=== PATIENT | female | born 1960 | race Caucasian/White ===

== ENCOUNTER → 2017-02-05 | Outpatient (CLI) | payer OTHER, MEDICAID | LOC: EDSTATUS 11:43 → FLAB 15:06 → FIMAGING 15:06 | DX: M54.2 Cervicalgia (principal); V89.2XXA Person injured in unspecified motor-vehicle accident, traffic, initial encounter ==

== ENCOUNTER 2017-09-04 11:33 | Emergency (ER) | payer MEDICAID, OTHER ==
[2017-09-04 11:46] VITALS: BP 208/151
--- NOTE | 2017-09-04 11:51 | EDPHY ---
H & P Stated Complaint: HTN Time Seen by Provider: 09/04/17 11:50 - Personal History Current Tetanus/Diphtheria Vaccine: Yes Current Tetanus Diphtheria and Acellular Pertussis (TDAP): Yes - Medical/Surgical History Hx Asthma: No Hx Chronic Respiratory Disease: No Hx Diabetes: No Hx Cardiac Disease: No Hx Renal Disease: No Hx Cirrhosis: No Hx Alcoholism: No Hx HIV/AIDS: No Hx Splenectomy or Spleen Trauma: No Other PMH: HTN, anxiety, PTSD, chronic pain - Social History Smoking Status: Never smoked Constitutional: Initial Vital Signs Temperature (C) 36.7 C 09/04/17 11:43 Heart Rate 102 H 09/04/17 11:43 Respiratory Rate 16 09/04/17 11:43 Blood Pressure 208/151 H 09/04/17 11:43 O2 Sat (%) 96 09/04/17 11:43 O2 Delivery Mode Room Air Allergies/Adverse Reactions: steroids Allergy (Uncoded 08/17/11 11:03) Other-Enter Comments Home Medications: Medication Instructions Recorded Atenolol 09/04/17 Clonazepam 09/04/17 HCTZ (*) 09/04/17 Lotensin 09/04/17 Vicodin 5-300 mg Tablet 09/04/17 clonazePAM [klonoPIN (*)] 1 mg PO DAILY #30 tab 09/04/17 Medical Decision Making ED Course/Re-evaluation: CHIEF COMPLAINT: Hypertension medication refill HISTORY OF PRESENT ILLNESS: The patient is a 57 y/o female complaining of a high blood pressure after running out of her medications (Clonazepam and Vicodin). After running out of her medication, she called her PCP Dr. Barreto, who would not refill the medications unless she went in for a visit. She is only concerned about having her Clonazepam refilled. Denies chest pain, shortness of breath, abdominal pain , numbness, paresthesias, fever. REVIEW OF SYSTEMS: A 10 point review of systems was performed and is negative with the exception of the elements mentioned in the history of present illness. PHYSICAL EXAM: HR, BP, O2 Sat, RR. Temp noted General Appearance: Tearful, alert, well hydrated, appropriate, and non-toxic appearing. Head: Atraumatic without scalp tenderness or obvious injury Eyes: Pupils equal, round, reactive to light and accommodation, EOMI, no trauma , no injection. Ears: Clear bilaterally, no perforation, normal landmarks Nose: Atraumatic, no rhinorrhea, clear. Throat: There is no erythema or exudates, no lesions, normal tonsils, mucus membranes moist. Neck: Supple, nontender, no lymphadenopathy. Respiratory: No retractions, no distress, no wheezes, and no accessory muscle use. Lungs are clear to auscultation bilaterally. Cardiovascular: Regular rate and rhythm, no murmurs, rubs, or gallops. Bilateral carotid, radial, dorsalis pedis, and posterior tibial pulses intact. Good capillary refill all extremities. Gastrointestinal: Abdomen is soft, nontender, non-distended, no masses, no rebound, no guarding, no peritoneal signs. Musculoskeletal: Normal active ROM of all extremities, atraumatic. Neurological: Alert, appropriate, and interactive. Nonfocal neuro. Skin: No rashes, good turgor, no nodules on palpation. Past medical history: Hypertension, anxiety, PTSD, chronic pain Past surgical history: Denies Family history: None Social history: Lives in [place], , employed DIFFERENTIAL DIAGNOSIS: The differential diagnosis for the patient's hypertension included but was not limited to medication refill, orthostatic causes including dehydration, cardiogenic and neurogenic causes, and blood loss. MEDICAL DECISION MAKING: The patient is a 57 y/o female complaining of a high blood pressure after running out of her medications (Clonazepam). On exam she is tearful and anxious. Imaging and laboratory studies are not indicated at this time. 1200: Reassessed patient and discussed Clonazepam refill. Return precautions provided; patient is comfortable with this plan. Departure - Departure Disposition: Home, Routine, Self-Care Clinical Impression: Prescription refill Hypertension Qualifiers: Hypertension type: unspecified Qualified Code(s): I10 - Essential (primary) hypertension Condition: Good Instructions: Clonazepam (By mouth), Hypertension (ED) Additional Instructions: 1. Take Clonazepam as prescribed. 2. Follow-up with your primary doctor within 72 hours. 3. Return to the Emergency Department for fever, chest pain, shortness of breath , increasing pain or other worsening of condition. Referrals: Leonard Barreto MD [Medical Doctor] - As per Instructions Prescriptions: clonazePAM [klonoPIN (*)] 1 mg PO DAILY #30 tab Report Scribed for: Rah Hollis Report Scribed by: Usha Ruby Date of Report: 09/04/17 Time of Report: 11:54
== END 2017-09-04 12:00 | disposition home or self-care (01) ==
DX: I10 Essential (primary) hypertension (principal); Z76.0 Encounter for issue of repeat prescription

== ENCOUNTER 2018-10-13 15:30 | Emergency (ER) | payer MEDICAID | END 2018-10-13 16:14 | disposition home or self-care (01) ==